=== PATIENT | female | born 2005 | race Caucasian/White ===

== ENCOUNTER 2024-11-05 12:30 | Outpatient (RCR) | payer OTHER, BC, SELFPAY | END 2024-11-19 13:35 | disposition home or self-care (01) | PROVIDERS: Visit Provider Orthopaedic Surgery Sports Medicine | DX: M54.40 Lumbago with sciatica, unspecified side (principal); S79.911D Unspecified injury of right hip, subsequent encounter; M25.551 Pain in right hip; Z51.89 Encounter for other specified aftercare | CPT/HCPCS: 97110; 97140; 97161; 97164 ==